=== PATIENT | female | born 1980 | race Asian ===

== ENCOUNTER 2022-05-04 10:18 | Outpatient (CLI) | payer BC | END 2022-05-04 10:19 | disposition home or self-care (01) | LOC: CSHCT 10:18 | PROVIDERS: ATTEND Student in an Organized Health Care Education/Training Program | DX: R10.32 Left lower quadrant pain (principal); N85.2 Hypertrophy of uterus; D25.9 Leiomyoma of uterus, unspecified; R93.89 Abnormal findings on diagnostic imaging of other specified body structures; N83.201 Unspecified ovarian cyst, right side; N28.1 Cyst of kidney, acquired | CPT/HCPCS: 74178 ==